=== PATIENT | male | born 1975 | race Caucasian/White ===

== ENCOUNTER → 2021-04-02 07:59 | Outpatient (CLI) | payer BC, SELFPAY ==
[2021-04-02 09:23] LABS: COVID19 -Nasal RAPID Negative (Negative)
== END ==
PROVIDERS: Visit Provider Nurse Practitioner Family
DX: Z20.822 Contact with and (suspected) exposure to COVID-19 (principal); R51.9 Headache, unspecified
CPT/HCPCS: 87635

== ENCOUNTER → 2023-09-24 06:59 | Outpatient (CLI) | payer OTHER, SELFPAY ==
[2023-09-24 07:53] LABS: Add Manual Diff / Slide Review NO; Basophils Absolute Auto 0 /uL (0-100); Basophils Percent Auto 0.6 % (0-2); Eosinophils Absolute Auto 100 /uL (0-450); Eosinophils Percent Auto 3.3 % (2-4); Hematocrit 43.4 % (41-53); Lymphocytes Absolute Auto 1400 /uL (1100-4500); Mean Corpuscular HGB Conc 34.5 % (30-36); Mean Corpuscular Volume 92.7 fL (80-100); Monocytes Absolute Auto 300 /uL (0-900); Monocytes Percent Auto 8.6 % (3-14); Neutrophils Absolute Auto 2100 /uL (1500-7000); Neutrophils Percent Auto 52.5 % (50-75); Platelet Count 206 X10^3/uL (150-400); Red Blood Cell Count 4.68 X10^6/uL (4.5-5.9); Red Cell Distribution Width 13.4 % (11.6-14.8)
[2023-09-24 08:06] LABS: Cholesterol 216 mg/dL (140-199); HDL Cholesterol 58 mg/dL (40-60); LDL Cholesterol Calculated 128 mg/dL (<100); Triglycerides 149 mg/dL (35-150)
[2023-09-24 09:41] LABS: Hemoglobin A1C% w Est Avg Glu 5.2 % (4.0-6.0)
[2023-09-24 16:25] LABS: Creatinine Urine Random 175.6 mg/dL
[2023-09-24 16:30] LABS: Microalbumi Creatinin Ratio Ur 4.5 ug/mg CR (<30); Microalbumin Urine Random 0.8 mg/dL (0-1.6)
== END ==
PROVIDERS: PCP Family Medicine; Referring Provider Family Medicine; Visit Provider Family Medicine
DX: Z11.4 Encounter for screening for human immunodeficiency virus [HIV] (principal); Z11.59 Encounter for screening for other viral diseases; Z13.1 Encounter for screening for diabetes mellitus; I10 Essential (primary) hypertension; Z13.220 Encounter for screening for lipoid disorders
CPT/HCPCS: 36415; 80061; 82043; 82570; 83036; 85025; 86803; 87389

== ENCOUNTER → 2024-04-19 14:50 | Outpatient (CLI) | payer OTHER, SELFPAY ==
--- NOTE | 2024-04-19 14:52 | DI.RAD.S_ITS ---
PROCEDURE: XR KNEE LT 3V INDICATIONS: Bilateral knee pain x6 weeks TECHNIQUE: 3 views of the knee were acquired. COMPARISON: None. FINDINGS: Bones: No fractures or dislocations. Marginal tricompartment degenerative osteophytes. Mild medial compartment joint space loss. No suspicious bony lesions. Soft tissues: No joint effusion. No suspicious soft tissue calcifications. IMPRESSION: Degenerative arthritis. No acute bony abnormality. Dictated by: Herber Salinas M.D. on 04/19/2024 at 20:40 Approved by: Herber Salinas M.D. on 04/19/2024 at 20:41
--- NOTE | 2024-04-19 14:52 | DI.RAD.S_ITS ---
PROCEDURE: XR KNEE RT 3V INDICATIONS: Bilateral knee pain x6 weeks TECHNIQUE: 3 views of the knee were acquired. COMPARISON: None. FINDINGS: Bones: No fractures or dislocations. Very minimal degenerative change. No suspicious bony lesions. Soft tissues: No joint effusion. No suspicious soft tissue calcifications. IMPRESSION: Very minimal degenerative change. Dictated by: Herber Salinas M.D. on 04/19/2024 at 20:41 Approved by: Herber Salinas M.D. on 04/19/2024 at 20:42
== END ==
PROVIDERS: PCP Family Medicine; Referring Provider Family Medicine; Visit Provider Family Medicine
DX: M25.561 Pain in right knee (principal); M25.562 Pain in left knee; M17.12 Unilateral primary osteoarthritis, left knee
CPT/HCPCS: 73562

== ENCOUNTER → 2024-12-02 08:37 | Outpatient (CLI) | payer OTHER, SELFPAY ==
--- NOTE | 2024-12-02 08:38 | DI.US.S_ITS ---
PROCEDURE: US ABDOMEN LIMITED INDICATIONS: BILIARY COLIC TECHNIQUE: Real-time scanning was performed of the abdominal and retroperitoneal organs, with image documentation. COMPARISON: None. FINDINGS: Liver: The liver is normal size. The parenchyma is slightly echogenic diffusely. No solid mass. Appropriate direction of flow in the main portal vein. Gallbladder: The gallbladder is entirely decompressed. No visible stones. There appears to be noncalcified, nonshadowing dependent material. No wall thickening given complete decompression. No pericholecystic fluid or sonographic Linda sign. Biliary ducts: Intrahepatic bile ducts are non-dilated. Extrahepatic bile duct caliber measures 3.7 mm. Normal is 6-7 mm or less in diameter, or 10 mm or less post-cholecystectomy. Pancreas: Visualized portions of the pancreas are sonographically normal. Miscellaneous: No free abdominal fluid. IMPRESSION: Decompressed gallbladder containing probable sludge. No cholelithiasis or sonographic findings of acute cholecystitis. Dictated by: Mimi Ontiveros M.D. on 12/02/2024 at 13:29 Approved by: Mimi Ontiveros M.D. on 12/02/2024 at 13:31
[2024-12-02 10:03] LABS: Add Manual Diff / Slide Review NO; Hematocrit 41.6 % (41-53); Hemoglobin 14.6 g/dL (13.5-17.5); Lymphocytes Absolute Auto 1400 /uL (1100-4500); Mean Corpuscular HGB Conc 35.1 % (30-36); Mean Corpuscular Hemoglobin 32.8 PG (26-34); Mean Corpuscular Volume 93.5 fL (80-100); Platelet Count 212 X10^3/uL (150-400)
[2024-12-02 10:28] LABS: Alanine Aminotransferase 25 IU/L (<50); Albumin 4.4 g/dL (3.5-5.0); Albumin Globulin Ratio 1.6 (1.0-2.8); Alkaline Phosphatase 45 U/L (38-126); Amylase 62 U/L (30-110); Blood Urea Nitrogen 8 mg/dL (9-20); Calcium 9.3 mg/dL (8.4-10.2); Carbon Dioxide 27 mmol/L (22-32); Chloride 98 mmol/L (98-107); Cholesterol 171 mg/dL (140-199); Estimated Glomerular Filt Rate > 60 mL/min (>60); Globulin 2.8 g/dL (1.7-4.1); Glucose 81 mg/dL (70-99); HDL Cholesterol 60 mg/dL (40-60); HEMOLYSIS < 15 (0-50); Lipase 65 U/L (23-300); Potassium 4.4 mmol/L (3.4-5.1); Sodium 131 mmol/L (137-145); Total Protein 7.2 g/dL (6.3-8.2); Triglycerides 97 mg/dL (35-150)
== END ==
PROVIDERS: PCP Family Medicine; Referring Provider Family Medicine; Visit Provider Family Medicine
DX: K80.50 Calculus of bile duct without cholangitis or cholecystitis without obstruction (principal); I10 Essential (primary) hypertension; E78.2 Mixed hyperlipidemia
CPT/HCPCS: 36415; 76705; 80053; 80061; 82043; 82150; 82570; 83690; 85025

== ENCOUNTER 2024-12-28 19:01 | Observation (INO) | payer OTHER, SELFPAY ==
[2024-12-28] VITALS (7 sets, daily range): BP systolic 157–185; BP diastolic 90–118; PULSE 59–80; RESP 14–18; TEMP 36.4–36.8; O2SAT 96–100; BMI 29.1
--- NOTE | 2024-12-28 19:35 | ED.ABDPAIN ---
HPI - Abdominal Pain General Chief Complaint: Abdominal Pain Stated Complaint: gallbladder attack Time Seen by Provider: 12/28/24 19:03 History of Present Illness HPI narrative: 47-year-old gentleman history of hypertension, dyslipidemia, nicotine dependence, seen by PCP on 12/23/2024 with known history of gallbladder sludge prescribe ureter distal presents today with right upper quadrant pain severe intermittent sharp colicky type pain that he has had within the last few days 5 times despite low-fat diet. Denies fever, chills, body aches, chest pain, shortness breath, cough, nausea, vomiting, diarrhea, constipation. He was offered surgery initially but decided to try the medical option but given the pain today came in to be re-evaluated. Other than what is stated 14 point review of system is negative. Related Data Previous Rx's ?Medication ?Instructions ?Recorded lisinopril 20 1 tab PO DAILY #90 tabs 04/15/24 mg-hydrochlorothiazide 25 mg tablet propranolol 20 mg tablet 20 mg PO BID PRN anxiety #60 tabs 10/25/24 ursodiol 500 mg tablet 500 mg PO BID #180 tabs 12/23/24 Allergies Allergy/AdvReac Type Severity Reaction Status Date / Time No Known Drug Allergies Allergy Verified 12/01/24 11:59 Review of Systems Review of Systems ROS Unobtainable: All systems reviewed & are unremarkable except as noted in HPI and below Patient History Medical History (Updated 12/23/24 @ 11:14 by Jamie Casillas MD) PTSD (post-traumatic stress disorder) (~1991) Anxiety (~1991) Shoulder pain Carpal tunnel syndrome Recurrent sinusitis (~1989) Surgical History (Updated 04/28/23 @ 21:00 by Tabitha Caceres) Anesthesia History of tonsillectomy (~1989) Family History (Updated 04/28/23 @ 21:01 by Tabitha Caceres) Father Overweight Grandfather History of heart disease Grandmother History of heart disease Social History Tobacco: How many years used: 20 Smokeless tobacco user: other (Vaping, quit 03/2023) alcohol intake: current (1-2 servings daily) substance use type: former substance user Exam Narrative Exam Narrative: GENERAL: [49] year old patient appears stated age. Well-developed patient, in mild distress. HEAD: Atraumatic. Normocephalic. EYES: Pupils equal round and reactive. Extraocular motions intact. No scleral icterus. No injection or drainage. ENT: Nose without bleeding, purulent drainage. Throat without erythema, tonsillar hypertrophy or exudate. Airway patent. NECK: Trachea midline. Non tender CARDIOVASCULAR: Regular rate and rhythm without murmurs, gallops, or rubs. RESPIRATORY: Clear to auscultation. Breath sounds equal bilaterally. No wheezes, rales, or rhonchi. GASTROINTESTINAL: Abdomen soft, RUQ TTP nondistended. EXTREMITIES: No edema or joint tenderness. BACK: Nontender without deformity or crepitance. No flank tenderness. NEURO: AOx3. SKIN: No rash or erythema of visible areas Initial Vital Signs Initial Vital Signs: Vital Signs Temperature 97.6 F 12/28/24 19:08 Pulse Rate 59 L 12/28/24 19:08 Respiratory Rate 18 12/28/24 19:08 Blood Pressure 185/98 H 12/28/24 19:08 Pulse Oximetry 100 12/28/24 19:08 Oxygen Delivery Method Room Air 12/28/24 19:08 Course Orders Ordered: ED Orders 12/28/24 19:11 EKG-12 Lead Stat 12/28/24 19:30 Complete Blood Count AUTO DIFF Stat Comprehensive Metabolic Panel Stat Lipase Stat 12/28/24 19:34 CT abdomen pelvis w con Stat Ondansetron HCl (Ondansetron 4 Mg/2 Ml Inj) 4 mg IV NOW PRN PRN Reason: Nausea And Vomiting Ondansetron HCl (Ondansetron 4 Mg Odt) 4 mg PO NOW PRN PRN Reason: Nausea And Vomiting Ondansetron HCl (Ondansetron 4 Mg/2 Ml Inj) 4 mg IV NOW PRN PRN Reason: Nausea And Vomiting Ondansetron HCl (Ondansetron 4 Mg Odt) 4 mg PO NOW PRN PRN Reason: Nausea And Vomiting Discontinued Medications Lactated Ringer's (Lactated Ringers) 1,000 mls @ 1,000 mls/hr IV BOLUS ONE Stop: 12/28/24 20:33 Last Admin: 12/28/24 19:49 Dose: 1,000 mls/hr Documented By: LORY Ketorolac Tromethamine (Ketorolac 30 Mg/Ml Vial) 15 mg IV NOW ONE Stop: 12/28/24 19:35 Last Admin: 12/28/24 19:50 Dose: 15 mg Documented By: LORY Vital Signs Vital signs: Vital Signs - 8 hr 12/28/24 19:08 Temperature 97.6 F Pulse Rate 59 L Respiratory Rate 18 Blood Pressure 185/98 H Pulse Oximetry 100 Oxygen Delivery Method Room Air MDM - Abdominal Pain Lab Data 12/28/24 19:30 12/28/24 19:30 Labs: Lab Results 12/28/24 Range/Units 19:30 WBC 6.4 (4.5-11.0) X10^3/uL RBC 4.71 (4.5-5.9) X10^6/uL Hgb 15.6 (13.5-17.5) g/dL Hct 44.9 (41-53) % MCV 95.3 (80-100) fL MCH 33.1 (26-34) PG MCHC 34.7 (30-36) % RDW 14.0 (11.6-14.8) % Plt Count 214 (150-400) X10^3/uL Neut % (Auto) 55.4 (50-75) % Lymph % (Auto) 33.6 (25-40) % [place] % (Auto) 7.7 (3-14) % Eos % (Auto) 2.5 (2-4) % Baso % (Auto) 0.8 (0-2) % Neut # (Auto) 3500 (6414-2266) /uL Lymph # (Auto) 2100 (7908-6553) /uL [place] # (Auto) 500 (0-900) /uL Eos # (Auto) 200 (0-450) /uL Baso # (Auto) 100 (0-100) /uL Sodium 135 L (137-145) mmol/L Potassium 3.6 (3.4-5.1) mmol/L Chloride 99 (98-107) mmol/L Carbon Dioxide 26 (22-32) mmol/L BUN 11 (9-20) mg/dL Creatinine 1.00 (0.66-1.25) mg/dL Estimated GFR > 60 (>60) mL/min BUN/Creatinine Ratio 11.0 (6-22) Glucose 106 H (70-99) mg/dL Calcium 9.4 (8.4-10.2) mg/dL Total Bilirubin 0.9 (0.2-1.3) mg/dL AST 32 (17-59) IU/L ALT 24 (<50) IU/L Alkaline Phosphatase 53 (38-126) U/L Total Protein 8.2 (6.3-8.2) g/dL Albumin 4.9 (3.5-5.0) g/dL Globulin 3.3 (1.7-4.1) g/dL Albumin/Globulin Ratio 1.5 (1.0-2.8) Lipase 93 (23-300) U/L Imaging Data CT scan - abdomen/pelvis: Radiologist's Impression: [address] [address] [address] Scan Report Signed Patient: Jamie Ramirez MR#: [id number] : 1975 Acct:[id number] Age/Sex: 49 / M Date of Service: 12/28/24 Loc: ED Accession Number: [id number] Procedure: CT abdomen pelvis w con Ordering Provider: Mychal Jama D.O. PROCEDURE: CT ABDOMEN PELVIS W CON INDICATIONS: epigastric/ ruq pain TECHNIQUE: After the administration of intravenous contrast, axial sections acquired from the lung bases to the pubic symphysis. Coronal and sagittal reformats were performed. For radiation dose reduction, the following was used: automated exposure control, adjustment of mA and/or kV according to patient size. COMPARISON: None. FINDINGS: Image quality: Diagnostic. Lower Chest: No significant findings. ABDOMEN: Liver: No solid mass. Gallbladder: Cholelithiasis without wall thickening or pericholecystic fluid. Biliary ducts: No biliary dilation. Pancreas: No ductal dilation. Spleen: Size is within normal limits. Adrenal Glands: No adrenal nodules. Kidneys and Ureters: No hydronephrosis. No solid mass. No complex renal cystic lesion which reqires follow up. Stomach and Bowel: Normal colonic caliber, without significant wall thickening. Appendix is mildly dilated measuring up to 9 mm in caliber (2/90). There is no significant adjacent fat stranding or inflammatory changes. Peritoneum: No abnormal intraperitoneal fluid. No free air. Ventral Wall: No significant ventral hernia. Abdominal Nodes: No retroperitoneal or mesenteric adenopathy by size criteria. Vessels: Aorta and inferior vena cava are normal in size. PELVIS: Pelvic Organs: Prostatomegaly. Bladder: Mildly increased circumferential bladder wall thickening, greater than expected for degree of distension.. Pelvic Nodes: No enlarged lymph nodes. Miscellaneous: Small fat containing left inguinal hernia.. Bones: No aggressive osseous abnormality. Multilevel degenerative changes of the visualized spine. IMPRESSION: 1. Mildly dilated appendix measuring up to 9 mm in caliber without surrounding inflammation or significant wall thickening. Finding may represent normal variant versus early appendicitis. Recommend clinical correlation. 2. Cholelithiasis without CT evidence of acute cholecystitis. 3. Prostatomegaly. Mildly increased circumferential bladder wall thickening greater than expected for degree of distension. Finding may represent chronic bladder outlet obstruction in the setting of enlarged prostate. MDM Narrative Medical decision making narrative: All lab work, vital signs, nurse triage note, medication list, previous ER visits and all imaging studies reviewed. Discharge Plan Departure Prescriptions: No Action lisinopril-hydrochlorothiazide 20-25 mg tablet 1 tab PO DAILY Qty: 90 3RF ursodiol 500 mg tablet 500 mg PO BID Qty: 180 3RF propranolol 20 mg tablet 20 mg PO BID PRN (Reason: anxiety) Qty: 60 1RF Referrals: Jamie Casillas MD [Primary Care Provider, Family Practice]
[2024-12-28 19:40] LABS: Add Manual Diff / Slide Review NO; Hematocrit 44.9 % (41-53); Hemoglobin 15.6 g/dL (13.5-17.5); Lymphocytes Absolute Auto 2100 /uL (1100-4500); Mean Corpuscular HGB Conc 34.7 % (30-36); Mean Corpuscular Hemoglobin 33.1 PG (26-34); Mean Corpuscular Volume 95.3 fL (80-100); Platelet Count 214 X10^3/uL (150-400)
[2024-12-28] MEDS: LACTATED RINGERS 1,000 ML 1000 ML IV (19:49)
[2024-12-28] MEDS: KETOROLAC 30 MG/ML VIAL 15 MG IV (19:50)
[2024-12-28 19:55] LABS: Alanine Aminotransferase 24 IU/L (<50); Albumin 4.9 g/dL (3.5-5.0); Albumin Globulin Ratio 1.5 (1.0-2.8); Alkaline Phosphatase 53 U/L (38-126); Blood Urea Nitrogen 11 mg/dL (9-20); Calcium 9.4 mg/dL (8.4-10.2); Carbon Dioxide 26 mmol/L (22-32); Chloride 99 mmol/L (98-107); Estimated Glomerular Filt Rate > 60 mL/min (>60); Globulin 3.3 g/dL (1.7-4.1); Glucose 106 mg/dL (70-99); HEMOLYSIS 15 (0-50); Lipase 93 U/L (23-300); Potassium 3.6 mmol/L (3.4-5.1); Sodium 135 mmol/L (137-145); Total Protein 8.2 g/dL (6.3-8.2)
[2024-12-28] MEDS: PIPERACILLIN/TAZO 4.5 GM in SODIUM CHLORIDE 0.9% 100 ML IV (20:54)
[2024-12-28 21:18] LABS: Culture Indicated Urine Cult Not Indicated
[2024-12-28] MEDS: SODIUM CHLORIDE 0.9% 1,000 ML 100 ML IV (23:05)
[2024-12-28] MEDS: PROPRANOLOL 10 MG TABLET 20 MG PO (23:25)
[2024-12-29] VITALS (10 sets, daily range): BP systolic 116–154; BP diastolic 63–106; PULSE 54–73; RESP 12–20; TEMP 36.7–37; O2SAT 95–100; BMI 29.1
--- NOTE | 2024-12-29 | PATH_ITS ---
[facility] Accession Number: [id number] No. of containers..01 Tissue . 01 Material submitted: . gallbladder - GALLBLADDER . 01 Diagnosis: GALLBLADDER, CHOLECYSTECTOMY: Mild acute and chronic cholecystitis with cholelithiasis. Negative for dysplasia or malignancy. [facility] 01/03/2025 1540 Local . 01 Electronically signed: . Luh Hooper MD, Pathologist NPI- [id number] . 01 Gross description: . Received in formalin, labeled with two identifiers and gallbladder, is an intact gallbladder measuring 9.5 x 2.6 x 2.5 cm with a slightly congested external surface. The cystic duct margin is inked blue. No pericystic lymph node is identified. The lumen contains several yellow, bosselated calculi measuring up to 0.3 cm in greatest dimension, not grossly obstructing the cystic duct and admixed with thick, green, sludge-like bile admixed with hemorrhagic material. The mucosa is patricio and velvety with an area of hemorrhage near the fundus, 2.3 cm in greatest dimension, with no yellow discoloration, polyps, or lesions identified. The cruz average 0.3 cm thick. Senior Php [employer] sections to include the cystic duct margin and full-thickness sections to include the hemorrhagic area are submitted in cassette A1. ([id number]) /FRAicha 12/30/2024 1159 Local . 01 Pathologist provided ICD-10: K81.2 . 01 CPT . 104905 Specimen Comment: A courtesy copy of this report has been sent to [phone] Performed at: [address] [address], [place], [place] [id number] MD Osiel Mills MD Phone: [phone]
[2024-12-29] MEDS: PIPERACILLIN/TAZO 3.375 GM in SODIUM CHLORIDE 0.9% 100 ML IV ×2 (00:12→09:07)
[2024-12-29 06:28] LABS: Add Manual Diff / Slide Review NO; Hematocrit 40.5 % (41-53); Hemoglobin 14.1 g/dL (13.5-17.5); Lymphocytes Absolute Auto 1600 /uL (1100-4500); Mean Corpuscular HGB Conc 34.8 % (30-36); Mean Corpuscular Hemoglobin 33.1 PG (26-34); Mean Corpuscular Volume 95.0 fL (80-100); Platelet Count 190 X10^3/uL (150-400)
[2024-12-29 06:43] LABS: Alanine Aminotransferase 18 IU/L (<50); Albumin 3.8 g/dL (3.5-5.0); Albumin Globulin Ratio 1.5 (1.0-2.8); Alkaline Phosphatase 39 U/L (38-126); Blood Urea Nitrogen 8 mg/dL (9-20); Calcium 8.7 mg/dL (8.4-10.2); Carbon Dioxide 27 mmol/L (22-32); Chloride 105 mmol/L (98-107); Estimated Glomerular Filt Rate > 60 mL/min (>60); Globulin 2.6 g/dL (1.7-4.1); Glucose 91 mg/dL (70-99); HEMOLYSIS < 15 (0-50); Potassium 3.6 mmol/L (3.4-5.1); Sodium 137 mmol/L (137-145); Total Protein 6.4 g/dL (6.3-8.2)
--- NOTE | 2024-12-29 07:58 | P.CONS_ITS ---
History of Present Illness Consult details Date Patient Seen: 12/29/24 Time Patient Seen: 07:58 Chief complaint: gallbladder attack Narrative: Jamie Ramirez is a 49-year-old man who presents with 2 months of right upper quadrant postprandial abdominal pain. At first it was stimulated by eating fatty foods but now it seems to be present even with a low-fat diet. He came to the emergency room last night and a CT demonstrated cholelithiasis and questionable thickening of the appendix. The appendix appears uninflamed to me. Meds Home Medications and Allergies Home Medications ?Medication ?Instructions ?Recorded ?Confirmed ?Type lisinopril 20 1 tab PO DAILY #90 tabs 10/0212/28/24 Rx mg-hydrochlorothiazide 25 mg tablet propranolol 20 mg tablet 20 mg PO BID PRN anxiety #60 tabs 10/25/24 12/28/24 Rx ursodiol 500 mg tablet 500 mg PO BID #180 tabs 12/1012/28/24 Rx Allergies Allergy/AdvReac Type Severity Reaction Status Date / Time No Known Drug Allergies Allergy Verified 12/01/24 11:59 Exam Vital Signs (past 8 hours): - 12/29/24 00:00 Blood Pressure 154/106 H Oxygen Delivery Method Room Air Oxygen Flow Rate 0 Narrative Exam Narrative: Abdomen is soft, tender to palpation in the right upper quadrant No Linda sign No tenderness at McBurney's point Objective Labs 12/29/24 06:10 12/29/24 06:10 Labs: Laboratory Results - last 24 hr 12/28/24 12/28/24 12/29/24 19:30 20:45 06:10 WBC 6.4 7.5 RBC 4.71 4.26 L Hgb 15.6 14.1 Hct 44.9 40.5 L MCV 95.3 95.0 MCH 33.1 33.1 MCHC 34.7 34.8 RDW 14.0 13.9 Plt Count 214 190 Neut % (Auto) 55.4 68.0 Lymph % (Auto) 33.6 21.4 L [place] % (Auto) 7.7 8.7 Eos % (Auto) 2.5 1.6 L Baso % (Auto) 0.8 0.3 Neut # (Auto) 3500 5100 Lymph # (Auto) 2100 1600 [place] # (Auto) 500 700 Eos # (Auto) 200 100 Baso # (Auto) 100 0 Sodium 135 L 137 Potassium 3.6 3.6 Chloride 99 105 Carbon Dioxide 26 27 BUN 11 8 L Creatinine 1.00 1.02 Estimated GFR > 60 > 60 BUN/Creatinine Ratio 11.0 7.8 Glucose 106 H 91 Calcium 9.4 8.7 Total Bilirubin 0.9 0.9 AST 32 21 ALT 24 18 Alkaline Phosphatase 53 39 Total Protein 8.2 6.4 Albumin 4.9 3.8 Globulin 3.3 2.6 Albumin/Globulin Ratio 1.5 1.5 Lipase 93 Urine RBC 0-1/hpf Urine WBC None seen Ur Squamous Epith Cells 0-1 /hpf Urine Bacteria None seen Ur Culture Indicated? Cult not indicated Vol Urine Centrifuged 10ml (spun) [facility] Medical History (Updated 12/29/24 @ 08:00 by Bjorn Aguilar MD) PTSD (post-traumatic stress disorder) (~1991) Anxiety (~1991) Shoulder pain Carpal tunnel syndrome Recurrent sinusitis (~1989) Surgical History (Updated 04/28/23 @ 21:00 by Tabitha Caceres) Anesthesia History of tonsillectomy (~1989) Family History (Updated 04/28/23 @ 21:01 by Tabitha Caceres) Father Overweight Grandfather History of heart disease Grandmother History of heart disease Social History household members: spouse Tobacco & Substance Use Smoking Status: Never smoker Tobacco: How many years used: 20 Smokeless tobacco user: other (Vaping, quit 03/2023) alcohol intake: current substance use type: former substance user Assessment & Plan Assessment and plan (1) Symptomatic cholelithiasis: Status: Acute Plan I recommended laparoscopic cholecystectomy for symptomatic cholelithiasis. I explained to Jamie that I do not suspect his appendix needs to come out as it appears normal to me on CT scan but I will take a close look at it when we are taking the gallbladder out. If it appears inflamed or otherwise abnormal I can also take it out. It would require an extra incision below the umbilicus. He would like to proceed. Time-Based Coding :: [TOTAL MINUTES] spent with patient and on the chart (including review of chart, obtaining history, exam, reviewing outside data, placing orders, documenting exam and treatment plan, and counseling patient) on [DATE]. PROFEE Charge Codes Inpatient or Observation consultation: 34935
--- NOTE | 2024-12-29 09:07 | PM.HP.IH.1 ---
History of Present Illness History of Present Illness Date Patient Seen: 12/29/24 Chief complaint: gallbladder attack Narrative: 47-year-old male with hypertension, hyperlipidemia, nicotine dependence, known history of gallbladder sludge. Presented to ER last night with severe RUQ colicky pain has become more persistent over the past 5 days despite low-fat diet. Denies fever, chills, body aches, chest pain, shortness breath, cough, nausea, vomiting, diarrhea, constipation. He was offered surgery initially but decided to try medical treatment with ursodiol, however now presents for re-evaluation due to worsening discomfort. ER evaluation notable for WBC 6.4, hemoglobin 15.6, platelets 214, AST 32, ALT 24, alk phos 53, bilirubin 0.9, lipase 93. CT abdomen/pelvis demonstrated cholelithiasis without wall thickening or pericholecystic fluid, mild dilation of the appendix up to 9 mm in caliber without adjacent fat stranding or inflammatory changes, mildly increased circumferential bladder wall thickening. PENDING SALE TO [facility] Medical History (Updated 12/29/24 @ 08:00 by Bjorn Aguilar MD) PTSD (post-traumatic stress disorder) (~1991) Anxiety (~1991) Shoulder pain Carpal tunnel syndrome Recurrent sinusitis (~1989) Surgical History (Updated 04/28/23 @ 21:00 by Tabitha Caceres) Anesthesia History of tonsillectomy (~1989) Family History (Updated 04/28/23 @ 21:01 by Tabitha Caceres) Father Overweight Grandfather History of heart disease Grandmother History of heart disease Social History household members: spouse Tobacco: How many years used: 20 Smokeless tobacco user: other (Vaping, quit 03/2023) alcohol intake: current substance use type: former substance user Meds Home Medications and Allergies Home Medications ?Medication ?Instructions ?Recorded ?Confirmed ?Type lisinopril 20 1 tab PO DAILY #90 tabs 04/15/24 12/28/24 Rx mg-hydrochlorothiazide 25 mg tablet propranolol 20 mg tablet 20 mg PO BID PRN anxiety #60 tabs 10/25/24 12/29/24 Rx ursodiol 500 mg tablet 500 mg PO BID #180 tabs 12/23/24 12/28/24 Rx hydrocodone 5 mg-acetaminophen 325 1 tab PO Q8H PRN pain #10 tabs 12/29/24 Rx mg tablet Allergies Allergy/AdvReac Type Severity Reaction Status Date / Time No Known Drug Allergies Allergy Verified 12/29/24 14:49 Review of Systems Review of Systems ROS: Yes All systems reviewed with the patient and are negative except as otherwise documented Exam Vital Signs (past 8 hours): - 12/29/24 08:13 Temperature 98.2 F Pulse Rate 59 L Respiratory Rate 16 Blood Pressure 149/88 H Pulse Oximetry 97 Oxygen Flow Rate 0 Oxygen Delivery Method Room Air Oxygen Flow Rate 0 Narrative Exam Narrative: General: Pleasant, NAD HEENT: NC/AT, EOMI, moist membranes CV: RRR, normal S1-S2, no m/g/r Resp: CTAB, comfortable WOB Abd: Soft, NTND, +BS Ext: No edema Skin: No rash or lesions noted Neuro: A&O x3, moves all extremities, no focal deficits Objective Imaging CT abdomen/pelvis: Radiologist's impression: CT ABDOMEN PELVIS W CON FINDINGS: Image quality: Diagnostic. Lower Chest: No significant findings. ABDOMEN: Liver: No solid mass. Gallbladder: Cholelithiasis without wall thickening or pericholecystic fluid. Biliary ducts: No biliary dilation. Pancreas: No ductal dilation. Spleen: Size is within normal limits. Adrenal Glands: No adrenal nodules. Kidneys and Ureters: No hydronephrosis. No solid mass. No complex renal cystic lesion which requires follow up. Stomach and Bowel: Normal colonic caliber, without significant wall thickening. Appendix is mildly dilated measuring up to 9 mm in caliber (2/90). There is no significant adjacent fat stranding or inflammatory changes. Peritoneum: No abnormal intraperitoneal fluid. No free air. Ventral Wall: No significant ventral hernia. Abdominal Nodes: No retroperitoneal or mesenteric adenopathy by size criteria. Vessels: Aorta and inferior vena cava are normal in size. PELVIS: Pelvic Organs: Prostatomegaly. Bladder: Mildly increased circumferential bladder wall thickening, greater than expected for degree of distension.. Pelvic Nodes: No enlarged lymph nodes. Miscellaneous: Small fat containing left inguinal hernia.. Bones: No aggressive osseous abnormality. Multilevel degenerative changes of the visualized spine. IMPRESSION: 1. Mildly dilated appendix measuring up to 9 mm in caliber without surrounding inflammation or significant wall thickening. Finding may represent normal variant versus early appendicitis. Recommend clinical correlation. 2. Cholelithiasis without CT evidence of acute cholecystitis. 3. Prostatomegaly. Mildly increased circumferential bladder wall thickening greater than expected for degree of distension. Finding may represent chronic bladder outlet obstruction in the setting of enlarged prostate. Approved by: Hoa Sprague M.D.,Ph.D. on 12/28/2024 at 20:35 Labs 12/29/24 06:10 12/29/24 06:10 Labs: Laboratory Results - last 24 hr 12/28/24 12/28/24 12/29/24 19:30 20:45 06:10 WBC 6.4 7.5 RBC 4.71 4.26 L Hgb 15.6 14.1 Hct 44.9 40.5 L MCV 95.3 95.0 MCH 33.1 33.1 MCHC 34.7 34.8 RDW 14.0 13.9 Plt Count 214 190 Neut % (Auto) 55.4 68.0 Lymph % (Auto) 33.6 21.4 L [place] % (Auto) 7.7 8.7 Eos % (Auto) 2.5 1.6 L Baso % (Auto) 0.8 0.3 Neut # (Auto) 3500 5100 Lymph # (Auto) 2100 1600 [place] # (Auto) 500 700 Eos # (Auto) 200 100 Baso # (Auto) 100 0 Sodium 135 L 137 Potassium 3.6 3.6 Chloride 99 105 Carbon Dioxide 26 27 BUN 11 8 L Creatinine 1.00 1.02 Estimated GFR > 60 > 60 BUN/Creatinine Ratio 11.0 7.8 Glucose 106 H 91 Calcium 9.4 8.7 Total Bilirubin 0.9 0.9 AST 32 21 ALT 24 18 Alkaline Phosphatase 53 39 Total Protein 8.2 6.4 Albumin 4.9 3.8 Globulin 3.3 2.6 Albumin/Globulin Ratio 1.5 1.5 Lipase 93 Urine RBC 0-1/hpf Urine WBC None seen Ur Squamous Epith Cells 0-1 /hpf Urine Bacteria None seen Ur Culture Indicated? Cult not indicated Vol Urine Centrifuged 10ml (spun) Assessment & Plan Assessment & Plan narrative: 47-year-old male with hypertension, hyperlipidemia, nicotine dependence, known history of gallbladder sludge admitted for symptomatic cholelithiasis. #symptomatic cholelithiasis Surgery consulted, recommended cholecystectomy given progression of symptoms. Underwent uncomplicated laparoscopic cholecystectomy with Dr. Aguilar. Appendix visualized during procedure and deemed normal-appearing without evidence of appendicitis. Discharged home same day with the appropriate postoperative care and follow-up instructions. -s/p zosyn -npo for surgery -hydrocodone-acetaminophen for post-op pain management #hypertension -home lisinopril 20mg, HCTZ 25mg Time-Based Coding :: 30 minutes spent with patient and on the chart (including review of chart, obtaining history, exam, reviewing outside data, placing orders, documenting exam and treatment plan, and counseling patient) on 12/29/2024. Quality VTE Deep Vein Thrombosis/Pulmonary Embolism Present on Admission: No PROFEE Intercell Connector Placer Document charge(s): Yes Charge Codes Inpatient/observation care including admit and discharge same day: [id number]
[2024-12-29] MEDS: SODIUM CHLORIDE 0.9% 1,000 ML 100 ML IV (09:12)
--- NOTE | 2024-12-29 13:10 | CM.DANOTE ---
Initial DCP Assessment Visit Note Reviewed EMR and team rounds for pt's medical status and updates. SALES EXPERT HOME THEATER was unable to meet with pt at bedside as he was in surgery at the time of this visit. Pt lives independently at baseline with is spouse and family in their own home here in [place]. His spouse will transport him home once he's been medically cleared for home d/c. Payor: [facility] PCP: Dr. Casillas Pt is a 49 year-old M who presented to the ED with c/o sharp, intermittent pain over the last few days in his right-upper quadrant. He was dx with cholecystitis based on presentation and known gallbladder sludge from his previous ED visit. Surgery was consulted, and the plan was made to admit for surgery (today). DCP will continue to follow for any further evolving d/c assistance or resource needs. Discharge Planning/Care Management CM Discharge Assessment Start: 12/28/24 22:25 Freq: Status: Active Protocol: Document 12/29/24 13:09 DPL (Rec: 12/29/24 13:10 DPL [id number]) Discharge Planning Assessment Assigned Discharge SON Lugo Director Of Content And Programming Advance Directives? No History Provided By Medical Record Has Patient been No admitted in last 30 days? Prior Living House Arrangements Household Members spouse Type of Drives own vehicle transporation used prior to admit Independent with ADL Yes 's Is patient alert and Yes oriented? Comment No identified home d/c needs at this time. Barriers to No Discharge Discharge Plan Home Referrals Initiated None needed Whiteboard Updated Yes in Patient Room with name and ext. # of [employer] Review Status In Process Please Provide Date 12/29/24 Initial DC Assessment Was Performed
[2024-12-29] MEDS: LACTATED RINGERS 1,000 ML 42 ML IV ×2 (15:03→16:45)
--- NOTE | 2024-12-29 16:10 | SUR.OPER ---
Supine on padded OR bed, head on pillow, safety belt at thigh. Bilateral arms secured on padded arm board <90 degrees abduction. Legs uncrossed. Padded footboard in place. Tape over blanket to secure lower legs.
--- NOTE | 2024-12-29 16:10 | PC.NURSE ---
Patient transported via bed by PACU/PREOP RN to PREOP at approximately 1440 at bedside. Initialized on 12/29/24 14:44 - END OF NOTE
--- NOTE | 2024-12-29 16:52 | PM.OP.1 ---
Operative Date/Time/Diagnoses Date of procedure: 12/29/24 Time of procedure: 16:52 Pre-op diagnosis: Symptomatic cholelithiasis Post-op diagnosis: same Procedure & Clinicians Procedure: Laparoscopic cholecystectomy Same procedure(s) as scheduled: Yes Surgeon: Bjorn Aguilar Mechanic Sound Technician: Dontrell Franco Anesthesia Type: General Operative Notes Findings: Gallbladder Applied: none Estimated Blood Loss (mL): 20 Procedure in detail: The patient was given preoperative antibiotics. The patient was brought to the operating room and placed on the table in the supine position. General endotracheal anesthesia was induced. The abdomen was prepped and draped. A time-out was performed. We made a 1 cm infraumbilical incision. We dissected down to the base of the umbilical stalk using cautery. We grasped the umbilical stalk with a Soo clamp to elevate the abdominal wall. We scored the fascia in the midline with cautery. We pierced the peritoneum with a Peon clamp. The Louis port was placed and the abdomen was insufflated to 15 mmHg. A 5 mm 30 degree laparoscopic was inserted. There was no evidence of any injury from the entry. Next, we placed 5 mm ports in the subxiphoid position and right upper quadrant at the midclavicular line and anterior axillary line. The patient was then positioned in reverse Trendelenburg and the table was tilted to the left. The gallbladder was grasped at the dome and retracted cephalad. We then dissected the cystic structures with a combination of hook cautery and blunt dissection. We obtained a critical view. We placed clips on the cystic duct and artery and divided the cystic duct and artery sharply between the clips. The gallbladder was then dissected off the liver and placed in a specimen retrieval bag. We irrigated the right upper quadrant and all the aspirate returned clear. No other abnormalities were noted in the abdomen. We then removed the 5 mm ports under direct vision we removed the Louis port. We then injected some local into the fascia and closed the fascia with 2 interrupted 0 Vicryl sutures. The skin incisions were closed with 4-0 Monocryl and Steri-Strips were applied. Band-Aids were applied over the Steri-Strips. EBL: 20 mL Specimen: Gallbladder and contents Complications: none Post-operative Condition: stable Disposition: PACU
--- NOTE | 2024-12-29 18:29 | PC.NURSE ---
Addendum entered by Berna Mallory RN 12/29/24 19:32: Patient is escorted via w/ch by infantry unit leader/PROFESSOR SCULPTURE with all belongings to private vehicle with at approximately 1920 for discharge home this evening Original Note: Patient returned from PACU at approximately 1730 this evening, he is A&OX4, slightly drowsy and reports mild pain. Alevyn to abdomen x4 sites C/D/i. He tolerates clears and then meal this evening. MD clears him medically for discharge home with prn pain medication. He verbalizes understanding of site care, activity limitations, s/sx of infection,as well as follow up appointment.
== END 2024-12-29 19:20 | disposition home or self-care (01) ==
LOC: ED 21:13 → AC 12-29 02:58
PROVIDERS: Surgery; Admitting Provider Family Medicine; Emergency Provider Family Medicine; PCP Family Medicine; Referring Provider Family Medicine; Visit Provider Family Medicine
PROC: 0FT44ZZ Resection of Gallbladder, Percutaneous Endoscopic Approach (ICD-10-PCS; CPT 47562; principal; 2024-12-29 16:30)
DX: K80.12 Calculus of gallbladder with acute and chronic cholecystitis without obstruction (principal); I10 Essential (primary) hypertension; F19.11 Other psychoactive substance abuse, in remission; Z87.891 Personal history of nicotine dependence; M20.32 Hallux varus (acquired), left foot; M20.40 Other hammer toe(s) (acquired), unspecified foot
CPT/HCPCS: 47562; 36415; 73630; 74177; 80053; 81003; 81015; 83690; 85025; 87086; 96365; 96366; 96375; 99232; 99284; G0378; J1100; J1171; J1885; J2250; J2405; J2543; J2704; J3010; Q9967

== ENCOUNTER 2025-04-01 06:42 | Day surgery (SDC) | payer OTHER, SELFPAY ==
[2024-12-28 22:45] VITALS: BMI 29.1
[2025-03-29 12:47] VITALS: BMI 27.8
--- NOTE | 2025-04-01 | PATH_ITS ---
[facility] Accession Number: [id number] No. of containers..01 Tissue . 01 Material submitted: . colon - CECAL POLYP . 01 Diagnosis: A: CECUM, POLYPECTOMY: Tubular adenoma. [facility] 04/11/2025 1332 Local . 01 Electronically signed: . Luh Hooper MD, Pathologist NPI- [id number] . 01 Gross description: . Received is one formalin-filled container labeled with the patient's name and labeled cecal polyp. The specimen consists of a 0.4 x 0.2 x 0.2 cm mathis-patricio portion of soft tissue. Entirely submitted in cassette A1. ([id number]) /ALYCE 04/06/20252116 Local . 01 Pathologist provided ICD-10: Z12.11 . 01 CPT . 271960 Specimen Comment: A courtesy copy of this report has been sent to [phone] Performed at: [address] [address] [address], [place], [place] [id number] MD Osiel Mills MD Phone: [phone]
[2025-04-01 07:14] VITALS: BP 131/85; PULSE 80; RESP 18; TEMP 37.1; O2SAT 100
[2025-04-01] MEDS: LACTATED RINGERS 1,000 ML 42 ML IV (07:20)
--- NOTE | 2025-04-01 07:21 | PM.HP.IH.1 ---
History of Present Illness History of Present Illness Date Patient Seen: 04/01/25 Time Patient Seen: 07:21 Chief complaint: Screening Colonoscopy Narrative: Jamie is a 49-year-old man here for his first screening colonoscopy. No family history of colon cancer. [facility] Medical History (Updated 04/01/25 @ 07:22 by Bjorn Aguilar MD) HTN (hypertension) Symptomatic cholelithiasis PTSD (post-traumatic stress disorder) (~1991) Anxiety (~1991) Shoulder pain Carpal tunnel syndrome Recurrent sinusitis (~1989) Surgical History (Updated 03/29/25 @ 12:44 by Yolanda Ray RN) Hx of cholecystectomy (12/29/24) Anesthesia History of tonsillectomy (~1989) Family History (Updated 04/28/23 @ 21:01 by Tabitha Caceres) Father Overweight Grandfather History of heart disease Grandmother History of heart disease Social History household members: spouse Smoking Status: Former smoker Tobacco: How many years used: 20 Smokeless tobacco user: other (Vaping, quit 03/2023) alcohol intake: current substance use type: former substance user Meds Home Medications and Allergies Home Medications ?Medication ?Instructions ?Recorded ?Confirmed ?Type lisinopril 20 1 tab PO DAILY #90 tabs 04/15/24 01/11/25 Rx mg-hydrochlorothiazide 25 mg tablet propranolol 20 mg tablet 20 mg PO BID PRN anxiety #60 tabs 10/25/24 01/11/25 Rx hydrocodone 5 mg-acetaminophen 325 1 tab PO Q8H PRN pain #10 tabs 12/29/24 01/11/25 Rx mg tablet sodium,potassium,mag sulfates 17.5 See Rx Instructions PO .COMPLEX 03/28/25 Rx gram-3.13 gram-1.6 gram oral soln #354 mL (Suprep Bowel Prep Kit) Allergies Allergy/AdvReac Type Severity Reaction Status Date / Time No Known Drug Allergies Allergy Verified 01/11/25 10:09 Exam Vital Signs (past 8 hours): - 04/01/25 07:14 Temperature 98.7 F Pulse Rate 80 Respiratory Rate 18 Blood Pressure 131/85 Pulse Oximetry 100 Oxygen Delivery Method Room Air Oxygen Delivery Method Room Air Const General: healthy appearing Assessment & Plan Assessment and plan (1) Colon cancer screening: Status: Acute Plan Colonoscopy Time-Based Coding :: [TOTAL MINUTES] spent with patient and on the chart (including review of chart, obtaining history, exam, reviewing outside data, placing orders, documenting exam and treatment plan, and counseling patient) on [DATE]. PROFEE Plant Protection Officer Document charge(s): No
[2025-04-01 08:04] VITALS: BP 113/68; PULSE 84; RESP 16; TEMP 37.1; O2SAT 97
[2025-04-01 08:05] VITALS: BP 110/67; PULSE 91; RESP 26; O2SAT 97
--- NOTE | 2025-04-01 08:07 | PM.OP.COLON ---
Operative Date/Time/Diagnoses Date of procedure: 04/01/25 Time of procedure: 08:07 Pre-op diagnosis: Colon cancer screening Post-op diagnosis: same Procedure & Clinicians Study performed: Colonoscopy Same procedure(s) as scheduled: Yes Surgeon: Bjorn Aguilar Anesthesia Type: MAC +/- Procedure Notes Procedure in detail: Surgeon: Bjorn Aguilar MD Anesthesia: Zorina Servando PROGRAMMER NUMERICAL CONTROL Procedure: The patient was brought to the endoscopy suite, placed in left lateral decubitus position. The patient was connected to monitoring devices. A time-out was performed. Sedation was administered. Once the patient was adequately sedated, a digital rectal exam was performed and was normal. The scope was then inserted and advanced to the cecum where the appendiceal orifice was identified and photographed. The scope was then slowly withdrawn over greater than 6 minutes. The mucosa was thoroughly inspected. There was a 3 mm polyp in the cecum removed with a cold snare. The remainder of the colon appeared normal. The scope was retroflexed in the rectum. No other abnormalities were found. The scope was straightened and removed. The patient was awakened and brought to recovery. Scope withdrawal time: 8 minutes Sedation time: 15 minutes Findings: 3 mm polyp in the cecum Estimated Blood Loss: 2 Complications: none Post-procedure Disposition: PACU
[2025-04-01 08:15] VITALS: BP 129/74; PULSE 80; RESP 13; O2SAT 97
[2025-04-01 08:17] VITALS: BP 122/78; PULSE 72; RESP 15; TEMP 36.6; O2SAT 97
== END 2025-04-01 08:34 | disposition home or self-care (01) ==
PROVIDERS: PCP Family Medicine; Referring Provider Surgery; Visit Provider Surgery
PROC: 0DJD8ZZ Inspection of Lower Intestinal Tract, Via Natural or Artificial Opening Endoscopic (ICD-10-PCS; CPT 45378; principal; 2025-04-01 07:45)
DX: Z12.11 Encounter for screening for malignant neoplasm of colon (principal); I10 Essential (primary) hypertension; Z87.891 Personal history of nicotine dependence; D12.0 Benign neoplasm of cecum
CPT/HCPCS: 45385; J2704; J7120